=== PATIENT | female | born 1995 | race African-American/Black ===

== ENCOUNTER 2020-10-03 09:27 | Emergency (ER) | payer MEDICAID ==
[~2020-10-03] VITALS: Ht 165.1 cm; Wt 104.0 kg
[2020-10-03] MEDS ORDERED: [UNRECOGNIZED DRUG - CODE] IM (09:31)
[2020-10-03] MEDS ORDERED: ONDANSETRON HCL 4MG/2ML INJ IV STA (09:41)
[2020-10-03] MEDS ORDERED: DEXT 5%/LACTATED RINGERS 1,000 ML IV ONE (09:45)
[2020-10-03 10:10] LABS: HEMATOCRIT. 43.6 % (36.0-48.0); HEMOGLOBIN. 14.9 g/dL (12.0-16.0); MEAN CORPUSCULAR HEMOGLOBIN 36.9 pg (28.0-32.0); MEAN CORPUSCULAR VOLUME 107.5 fL (81.0-99.0); MEAN PLATELET VOLUME 9.7 fl (7.4-10.4); PLATELET 157 x1000/uL (130-400); RED BLOOD CELL COUNT 4.05 mill/uL (4.2-5.4)
[2020-10-03 10:18] LABS: CHLORIDE 90 mEq/L (98-107)
[2020-10-03 10:21] LABS: INR 2.6; PROTHROMBIN TIME 25.6 sec (9.6-11.0)
[2020-10-03 10:30] LABS: HCG SCREEN NEGATIVE
[2020-10-03] MEDS ORDERED: PANTOPRAZOLE SODIUM 40 MG/VIAL IV ONE (10:30)
[2020-10-03 11:22] LABS: PLATELET ESTIMATE NORMAL
[2020-10-03] MEDS ORDERED: MORPHINE SULFATE 4 MG/ML CPJ (NOT FOR IM USE) IV NR (12:00)
[2020-10-03] MEDS ORDERED: SODIUM CHLORIDE 0.9% 1,000 ML IV ONE ×2 (12:00→14:45)
[2020-10-03] MEDS ORDERED: ONDANSETRON HCL 4MG/2ML INJ IV NR (12:00)
[2020-10-03] MEDS ORDERED: SODIUM BICARBONATE 8.4% 1 MEQ/ML 50ML SYR IV NR (12:30)
[2020-10-03] MEDS ORDERED: MORPHINE SULFATE 4 MG/ML CPJ (NOT FOR IM USE) IV ONE ×2 (15:00→23:15)
[2020-10-03] MEDS ORDERED: DEXT 5%/0.45% NACL 1000ML 1,000 ML IV SCH (19:15)
[2020-10-03] MEDS ORDERED: ONDANSETRON HCL 4MG/2ML INJ IV PRN (19:15)
[2020-10-03] MEDS ORDERED: SODIUM BICARBONATE 150 MEQ in SODIUM CHLORIDE 0.45% 1,000 ML IV SCH (20:30)
[2020-10-03] MEDS ORDERED: ACETYLCYSTEINE 200MG/ML 20% VIAL 30ML (INJ) IV ONE (20:30)
[2020-10-03 20:45] LABS: BG BASE EXCESS -0.8 mmol/L (-2.0-2.0); BG CARBOXYHEMOGLOBIN 1.4 % (0.5-1.5); BG DEOXYHEMOGLOBIN 4.7 % (0.0-5.0); BG FRACTION INSPIRED OXYGEN 21; BG HCO3 ACT 24.2 mmol/L (22.0-26.0); BG METHEMOGLOBIN 0.8 % (0.0-1.5); BG OXYGEN SATURATION 95.2 % (92.0-98.5); BG OXYHEMOGLOBIN 93.1 % (94.0-97.0); BG PCO2 41.3 mmHg (35.0-45.0); BG PH 7.385 (7.350-7.450); BG PO2 85.6 mmHg (75.0-100.0); BG SAMPLE SITE RIGHT RADIAL; BG TOTAL HEMOGLOBIN 13.6 g/dL (12.0-18.0); BG VENT MODE ROOM AIR
[2020-10-03] MEDS ORDERED: SODIUM BICARBONATE 100 MEQ in DEXT 5%/0.45% NACL 1000ML 1,000 ML IV ONE (21:00)
[2020-10-03] MEDS ORDERED: ACETYLCYSTEINE IV NR (21:30)
[2020-10-03] MEDS ORDERED: DEXT 5% IV NR (21:30)
[2020-10-03] MEDS ORDERED: WATER IV NR (21:30)
[2020-10-03 22:47] LABS: BASOPHILS % 0.2 % (0.0-2.0); EOSINOPHILS % 9.8 % (0.0-5.0); HEMATOCRIT. 37.6 % (36.0-48.0); HEMOGLOBIN. 13.1 g/dL (12.0-16.0); LYMPHOCYTES % 11.1 % (20.0-50.0); MEAN CORPUSCULAR HEMOGLOBIN 36.8 pg (28.0-32.0); MEAN CORPUSCULAR VOLUME 105.2 fL (81.0-99.0); MEAN PLATELET VOLUME 9.4 fl (7.4-10.4); MONOCYTES % 3.3 % (2.0-8.0); NEUTROPHILS % 75.6 % (40.0-76.0); PLATELET 139 x1000/uL (130-400); RED BLOOD CELL COUNT 3.58 mill/uL (4.2-5.4); RED CELL DISTRIBUTION WIDTH 15.3 % (11.6-14.6)
[2020-10-03 22:53] LABS: CHLORIDE 99 mEq/L (98-107)
[2020-10-03 22:58] LABS: PHOSPHORUS 5.5 mg/dL (2.5-4.9)
[2020-10-03 23:03] LABS: CREATINE KINASE MB FRACTION 15.4 ng/mL (0.5-3.6)
[2020-10-03 23:31] LABS: BETA HYDROXYBUTYRATE 0.2 mMol/L (0.0-0.3)
[2020-10-03 23:59] LABS: CLARITY URINE CLOUDY (CLEAR); COLOR URINE DARK YELLOW (YELLOW); KETONES URINE NEGATIVE (NEGATIVE); LEUKOCYTE ESTERASE URINE 2+ (NEGATIVE); NITRITE URINE POSITIVE (NEGATIVE); OCCULT BLOOD URINE 1+ (NEGATIVE); PROTEIN URINE 1+ (NEGATIVE); SPECIFIC GRAVITY URINE 1.025 (1.005-1.030); UROBILINOGEN URINE 0.2 E.U./dL (0.2-1.0)
[2020-10-04] MEDS ORDERED: DEXTROSE 5% IV SCH (01:30)
[2020-10-04] MEDS ORDERED: WATER IV SCH (01:30)
[2020-10-04] MEDS ORDERED: ACETYLCYSTEINE IV SCH (01:30)
[2020-10-04 05:23] LABS: BASOPHILS % 0.2 % (0.0-2.0); EOSINOPHILS % 6.3 % (0.0-5.0); HEMATOCRIT. 37.1 % (36.0-48.0); HEMOGLOBIN. 12.9 g/dL (12.0-16.0); LYMPHOCYTES % 9.8 % (20.0-50.0); MEAN CORPUSCULAR HEMOGLOBIN 36.5 pg (28.0-32.0); MEAN CORPUSCULAR VOLUME 105.1 fL (81.0-99.0); MEAN PLATELET VOLUME 9.1 fl (7.4-10.4); MONOCYTES % 5.8 % (2.0-8.0); NEUTROPHILS % 77.9 % (40.0-76.0); PLATELET 138 x1000/uL (130-400); RED BLOOD CELL COUNT 3.53 mill/uL (4.2-5.4); RED CELL DISTRIBUTION WIDTH 15.6 % (11.6-14.6)
[2020-10-04 05:29] LABS: CHLORIDE 98 mEq/L (98-107)
[2020-10-04 05:34] LABS: INR 2.4; PHOSPHORUS 4.5 mg/dL (2.5-4.9); PROTHROMBIN TIME 24.5 sec (9.6-11.0)
[2020-10-04 05:35] LABS: LDL CHOLESTEROL 18 mg/dL (5-100)
[2020-10-04 05:36] LABS: HDL CHOLESTEROL 25 mg/dL (40-59)
[2020-10-04 05:40] LABS: CREATINE KINASE MB FRACTION 15.4 ng/mL (0.5-3.6)
[2020-10-04 05:41] LABS: CREATINE KINASE 230 IU/L (26-192)
[2020-10-04 05:45] LABS: AMYLASE 921 IU/L (25-115)
[2020-10-04] MEDS ORDERED: SODIUM BICARBONATE 100 MEQ in DEXT 5%/0.45% NACL 1000ML 1,000 ML IV ONE (09:30)
[2020-10-04 10:21] VITALS: BP 107/74
[2020-10-05 08:08] LABS: *CREATININE RANDOM URINE 165.8 mg/dL (Not Estab.); MICROALBUMIN RANDOM URINE 395.6 ug/mL (Not Estab.)
[2020-10-06 19:06] LABS: ETHYLENE GLYCOL <5 mg/dL (None detected)
[2020-10-07 17:09] LABS: METHANOL BLOOD <0.010 g/dL (0.000-0.010)
[2020-10-08] MEDS ORDERED: SODIUM BICARBONATE 150 MEQ in SODIUM CHLORIDE 0.45% 1,000 ML IV SCH (03:15)
== END 2020-10-04 09:40 ==
LOC: ER 09:27 → EDBEDREQ 15:02 → ENRESERV 19:34 → CANRESERV 19:34 → CANBEDREQ 22:07 → ER 10-04 09:40
DX: K72.00 Acute and subacute hepatic failure without coma (principal); K85.90 Acute pancreatitis without necrosis or infection, unspecified; E87.2 Acidosis; N17.9 Acute kidney failure, unspecified; N19 Unspecified kidney failure; Z88.0 Allergy status to penicillin; K70.10 Alcoholic hepatitis without ascites; R73.9 Hyperglycemia, unspecified; E66.9 Obesity, unspecified; R74.8 Abnormal levels of other serum enzymes; R74.01 Elevation of levels of liver transaminase levels; E87.1 Hypo-osmolality and hyponatremia; Z68.32 Body mass index [BMI] 32.0-32.9, adult; Z20.822 Contact with and (suspected) exposure to COVID-19
CPT/HCPCS: 36415; 36600; 74176; 76700; 80053; 80061; 80074; 80307; 80320; 81003; 82010; 82043; 82140; 82150; 82248; 82375; 82533; 82550; 82553; 82570; 82693; 82805; 82962; 83036; 83605; 83690; 83735; 83930; 83935; 84100; 84300; 84443; 84478; 84484; 84703; 85025; 85610; 87426; 96365; 99291; C9113; J0132; J2270; J2405; J3490; J7060; J7070; J7121; 80076; 86705; 86709; 86803; 87340; 99285